=== PATIENT | male | born 1965 | race Hispanic/Latino ===

== ENCOUNTER 2017-12-18 20:49 | Inpatient (IN) | payer BC ==
[~2017-12-18 20:49] MED LIST: ISOVUE-370 76%-LOCM 1 ML ONE
[2017-12-18 22:05] LABS: #Basophils 0.1 thou/uL (0.0-0.2); #Eosinphils 0.2 thou/uL (0.0-0.7); #Lymphocytes 3.1 thou/uL (1.20-3.40); #Monocytes 1.1 thou/uL (0.11-0.59); %Lymphocytes 32.5 % (21.0-51.0); %Monocytes 11.7 % (0.0-10.0); %Neutrophils 52.9 % (42.0-75.0); Mean Corpuscular HGB CONC 32.6 g/dL (32.0-36.0); Mean Corpuscular Hemoglobin 29.3 pg (27.0-31.0); Mean Corpuscular Volume 89.9 fL (78.0-98.0); Platelet Count 249 thou/uL (130-400); RBC Distribution Width 12.1 % (11.5-14.5); Red Blood Cell (RBC) Count 5.46 mill/uL (4.70-6.10); White Blood Cell (WBC) Count 9.5 thou/uL (4.8-10.8)
[2017-12-18 22:26] LABS: CKMB 2.2 ng/mL (0-6.6); Troponin I Less than 0.010 ng/mL (< 0.028)
[2017-12-18 22:30] LABS: ALT (SGPT) 21 U/L (8-55); AST (SGOT) 15 U/L (5-34); Albumin 4.4 g/dL (3.5-5.0); Alkaline Phosphatase 80 U/L (40-150); Anion Gap 10 mmol/L (10-20); BUN (Urea Nitrogen) 17 mg/dL (8.9-20.6); Bilirubin, Total 0.4 mg/dL (0.2-1.2); Calc. Creatinine Clearance 0 mL/min (70-130); Calcium 9.5 mg/dL (7.8-10.44); Carbon Dioxide 26 mmol/L (22-29); Chloride 109 mmol/L (98-107); Estimated GFR-MDRD Greater than 90; Globulin 3.3 g/dL (2.4-3.5); Glucose 98 mg/dL (70-105); Potassium 3.8 mmol/L (3.5-5.1); Protein, Total 7.7 g/dL (6.0-8.3); Sodium 141 mmol/L (136-145)
--- NOTE | 2017-12-18 22:35 | RAD ---
CHEST ONE VIEW: INDICATIONS: History of bronchitis with dyspnea. COMPARISON: None. FINDINGS: There is a moderate left-sided pneumothorax. There are prominent bullous changes involving the left upper lobe and the medial right upper lobe. There is slight hyperexpansion of the lungs, indicative of underlying emphysema. There is mild cardiomegaly. No acute osseous abnormality is evident. IMPRESSION: 1. Moderate left-sided pneumothorax. 2. Severe emphysematous change. 3. Findings were called to Dr. Blake at 10:05 p.m. on 12/18/2017. CODE CR POS:
--- NOTE | 2017-12-18 23:11 | CT ---
CTA CHEST: HISTORY: Asthma and pneumothorax. TECHNIQUE: Contrast enhanced CTA chest is performed, 2D and 3D reconstructed images are performed on an [facility] 3D work station. FINDINGS: As mentioned on the chest radiograph, there is a moderate to large left-sided pneumothorax. Extensiv e bilateral emphysematous change is seen. Left lower lobe consolidation is seen. No evidence of ronnell ling defects seen in the pulmonary arteries to suggest pulmonary emboli. IMPRESSION: Extensive emphysematous and fibrobullous changes with a large left-sided pneumothorax seen. POS: [facility]
[2017-12-18] MEDS ORDERED: Lidocaine 1% w/Epinephrine 1:100K 20 ML VIAL ONE (23:50)
[2017-12-19] MEDS ORDERED: HYDROcodone/Acetaminophen 5/325 mg Tablet PO PRN (00:31)
[2017-12-19] MEDS ORDERED: Bisacodyl 5 MG TAB PO PRN (00:31)
[2017-12-19] MEDS ORDERED: Ondansetron PF 4 MG/2 ML Vial IVP PRN (00:31)
[2017-12-19] MEDS ORDERED: Senokot S 8.6-50 MG TAB PO PRN (00:31)
[2017-12-19] MEDS ORDERED: Fentanyl 100 MCG/2 ML VIAL SLOW IVP PRN ×2 (00:34)
[2017-12-19] MEDS: HYDROcodone/Acetaminophen 5/325 mg Tablet PO PRN ×2 (03:23→14:12)
[2017-12-19 03:53] VITALS: BMI 24.2
--- NOTE | 2017-12-19 04:32 | OP ---
PREOPERATIVE DIAGNOSIS: Spontaneous left pneumothorax. POSTOPERATIVE DIAGNOSIS: Spontaneous left pneumothorax. PROCEDURE: Left tube thoracostomy. SURGEON: Rayray Walters M.D. ANESTHESIA: 1% lidocaine with epinephrine. DESCRIPTION OF DETAIL: Left chest wall was prepped and draped in usual sterile fashion. Chest wall was then anesthetized just below the inframammary crease with 1% lidocaine with epinephrine. A total of 20 mL was used. The skin incision was made and sharp dissection used to enter the chest. There was an initial gush of air. A 28-Luxembourger chest tube was placed with good air fluctuation in and out, this caused patient to . The tube was secured with 0 silk suture and sterile dressings applied. Follow up chest x-rays shows chest tube pointing medially with good reexpansion of his lung. There was initial air leak eventually stopped.
--- NOTE | 2017-12-19 04:49 | CON ---
DATE OF CONSULTATION: 12/19/2017 EMERGENCY DEPARTMENT ENCOUNTER: 12/18/2017 HISTORY OF PRESENT ILLNESS: Mr. Stacie Rowley is a 52-year-old gentleman who presented in the early evening hours. He was short of breath. Chest x-ray showed a large left pneumothorax. He also had s evere bleb disease. He had a CT angiogram performed, which shows again severe bleb disease with a la rge left pneumothorax. I was asked to see him for further treatment strategy. Patient has no previous pneumothorax history. He really has almost asymptomatic at this time. PAST MEDICAL HISTORY: None. PAST SURGICAL HISTORY: None. CURRENT MEDICATIONS: None. ALLERGIES: None. SOCIAL HISTORY: He smokes a pack of Ghanaian cigarettes a day. 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 PHYSICAL EXAMINATION: VITAL SIGNS: Oxygen saturation is 95% on room air. Heart rate is 80 and regular, blood pressure is 118/71. HEENT: Sclerae nonicteric. Pupils equal and round bilaterally. NECK: Supple without any adenopathy or crepitance. There is no chest wall crepitance. LUNGS: Have diminished breath sounds throughout bilaterally. HEART: Rhythm is regular. ABDOMEN: Soft, nontender. EXTREMITIES: No edema. RADIOLOGY: I have reviewed his chest x-ray and chest CT. These show a large amount of bilateral ble b disease involving most of both lungs. On the left, he has a large pneumothorax which is compressed the normal lung inferiorly. This normal lung is very small in volume compared to the bleb disease. This is probably why he is so asymptomatic at this point in that he normally does not really have an y functional lung tissue to on the left. I have discussed treatment with him through a optical mechanic apprentice. He is a very reluctant and wants to go beau e and come back tomorrow. Eventually, I was able to convince him that this would add nothing other t doe risk to his current situation. He consented for chest tube placement.
[2017-12-19] MEDS: Ketorolac Tromethamine 30 MG/ML VIAL IVP SCH ×4 (05:50→23:47)
--- NOTE | 2017-12-19 09:16 | RAD ---
SINGLE VIEW OF THE CHEST: Comparison: 12-18-17 History: Chest pain, shortness of breath. FINDINGS: Single view of the chest shows normal sized cardiomediastinal silhouette. There is a left sided chest tube. The previously seen pneumothorax is not visualized on today's examination. There is air in the left chest wall. IMPRESSION: Evacuation of left pneumothorax. POS: [facility]
[2017-12-19] MEDS: Enoxaparin Sodium 30 MG/0.3 ML SYRINGE SC SCH (09:19)
--- NOTE | 2017-12-19 09:21 | RAD ---
TWO VIEWS OF THE CHEST: COMPARISON: None. HISTORY: Left chest tube placement for pneumothorax. FINDINGS: Two views of the chest show a normal-sized cardiomediastinal silhouette. There is a left-sided chest tube without evidence of pneumothorax on the current exam. A small left pleural effusion is seen. Atelectasis is seen in the left lung base. IMPRESSION: 1. Evacuation of pneumothorax. 2. Left pleural effusion with adjacent atelectasis. POS: [facility]
[2017-12-20] MEDS: Ketorolac Tromethamine 30 MG/ML VIAL IVP SCH ×2 (06:32→12:03)
--- NOTE | 2017-12-20 07:45 | RAD ---
FRONTAL RADIOGRAPH CHEST: DATE: 12/20/2017. COMPARISON: 12/19/2017. HISTORY: Left-sided chest tube. FINDINGS: There is subcutaneous emphysema seen focally within the lower aspect of the left chest wall, at the i nsertion of the patient's stable left-sided chest tube. There are severe emphysematous changes on th e left which limits detailed assessment for pneumothorax as there is an underlying marked paucity of lung markings. A component of pneumothorax is suspected in the left perihilar region medially. Ther e is no discrete pneumothorax within the left base. It is difficult to exclude apical pneumothorax o n the left, but no obvious pneumothorax is seen in this region. There are emphysematous changes asso ciated with the right lung as well. IMPRESSION: Stable left-sided chest tube. Probable small pneumothorax noted in the left perihilar region. It is difficult to apical pneumothorax on the left as detailed above. POS: [facility]
[2017-12-20] MEDS: Enoxaparin Sodium 30 MG/0.3 ML SYRINGE SC SCH (08:54)
--- NOTE | 2017-12-20 09:50 | CT ---
CT CHEST NONCONTRAST HIGH RESOLUTION: History: Dyspnea. Tobacco abuse. Recent pneumothorax. FINDINGS: Extensive disruptive emphysematous bullae involve each lung, primarily the upper lobes, left worse th an right. There is no pneumothorax evident. Left upper lobe is nearly completely inflated with some r esidual atelectasis at the dependent portion. Significant atelectasis remains at the left posterolate ral lung base with partial inflation of the left lower lobe which had been completely collapsed on th e previous exam. Airways are patent. No evidence of bronchiectasis. No significant peripheral interst itial disease. Lack of contrast limits evaluation of the mediastinum and soft tissues. No bulky adenopathy. Extensiv e gas is present throughout the left chest wall. IMPRESSION: 1. Severe emphysema. No evidence of significant interstitial lung disease. 2. Resolution of the left pneumothorax with small amount of residual atelectasis of the left lung. Ex tensive left chest wall gas remains. POS: [facility]
--- NOTE | 2017-12-20 10:53 | DIS ---
DATE OF ADMISSION: 12/19/2017 DATE OF DISCHARGE: 12/20/2017 DIAGNOSES: Emphysema with blebs and left spontaneous pneumothorax. PROCEDURE: Left chest tube placement. DESCRIPTION OF HOSPITAL STAY: Mr. Quinones presented to the Emergency Department short of breath. His chest x-ray followed by CT scan showed a large panlobular bullous disease. Alpha 1 antitrypsin was sent and Pulmonology consult has been obtained. He had a large pneumothorax on the left, which was treated with a chest tube. His lung immediately r eexpanded and there was no further air leak. His chest tube has been discontinued this morning. He is being discharged to home to follow up with me in a week in the office with a chest x-ray.
[2017-12-20 11:39] VITALS: BP 116/68; TEMP 97.8
--- NOTE | 2017-12-20 12:26 | CON ---
DATE OF CONSULTATION: 12/20/2017 HISTORY OF PRESENT ILLNESS: Mr. Stacie Rowley is a very pleasant 52-year-old male who was admitted with spontaneous pneumothorax. He has never been admitted here before. He is a heavy smoker leading up to this admission. His chest tube was removed this morning. He has significant bilateral upper lobe predominance of the cystic airspaces/bullous disease. I was consulted for assistance with his management. He recently was diagnosed with bronchitis and treated with a Z-Zaid. PAST MEDICAL HISTORY: Unremarkable. SOCIAL HISTORY: He is a smoker, smokes little Djiboutian cigars everyday. He is not a daily drinker. ALLERGIES: He reports an allergy to PENICILLIN. FAMILY HISTORY: Negative for lung disease at an early age. REVIEW OF SYSTEMS: 10 point review of systems completed; otherwise unremarkable. He denies shortness of breath, hemoptysis, purulent sputum. PHYSICAL EXAMINATION: GENERAL: He is in no distress. Chest tubes out. VITAL SIGNS: He is afebrile, heart rate 64, respiratory rate 18, oximetry is 94 % on room air, blood pressure 114/70. HEAD: Unremarkable. NECK: Unremarkable. He has no lymphadenopathy. LUNGS: Distant and clear. HEART: Regular rhythm. S1 and S2 are normal. ABDOMEN: Soft and nontender. EXTREMITIES: Without clubbing, cyanosis, or edema. CT was ordered by me this morning. His thin walled cystic airspaces most suggestive of emphysema. I doubt he has eosinophilic granuloma. He has been instructed not to smoke. I will see him back in follow up in 3 weeks to go over results of his alpha 1 antitrypsin level. This is a 70 minute consult, with greater than 50% of time spent on unit with coordination of care. BERNICE
--- NOTE | 2017-12-22 17:50 | EKG ---
Test Reason : SOB Blood Pressure : / mmHG Vent. Rate : 068 BPM Atrial Rate : 068 BPM P-R Int : 158 ms QRS Dur : 090 ms QT Int : 400 ms P-R-T Axes : -10 -34 000 degrees QTc Int : 425 ms Normal sinus rhythm Left axis deviation Abnormal ECG Confirmed by GISSELLE GILMAN ([id number]), writer editor HUGH GUZMAN ([id number]) on 12/22/2017 5:49:07 PM Referred By: Confirmed By:GISSELLE GILMAN
== END 2017-12-20 15:49 | disposition home or self-care (01) | DRG 201 ==
LOC: ERS 20:49 → SJJU 12-19 00:44
PROVIDERS: ADMIT Thoracic Surgery (Cardiothoracic Vascular Surgery); ATTEND Thoracic Surgery (Cardiothoracic Vascular Surgery)
PROC: 0W9B30Z Drainage of Left Pleural Cavity with Drainage Device, Percutaneous Approach (ICD-10-PCS; principal; 2017-12-19)
DX: J93.11 Primary spontaneous pneumothorax (principal); F17.210 Nicotine dependence, cigarettes, uncomplicated; J43.9 Emphysema, unspecified; Z88.0 Allergy status to penicillin
CPT/HCPCS: 32551; 36415; 71045; 71046; 71250; 71275; 80053; 82103; 82553; 83880; 84484; 85025; 85379; 93005; J1650; J1885; J2001

== ENCOUNTER 2017-12-25 13:48 | Outpatient (CLI) | payer BC ==
--- NOTE | 2017-12-25 15:49 | RAD ---
TWO VIEWS CHEST: COMPARISON: 12/19/2017, 12/20/2017. HISTORY: Pneumothorax. FINDINGS: There is a subcutaneous emphysema in the left lateral chest wall. Removal of left-sided chest tube. Small left apical pneumothorax is noted. Chronic changes of the lung parenchyma and hyperinflation are identified. Improving aeration in the left lung base. Residual opacities do remain. No osseous abnormalities. IMPRESSION: Small left-sided pneumothorax. POS: [facility]
== END 2017-12-25 13:49 | disposition home or self-care (01) ==
LOC: RAD 13:48
PROVIDERS: ATTEND Thoracic Surgery (Cardiothoracic Vascular Surgery)
DX: J93.11 Primary spontaneous pneumothorax (principal)
CPT/HCPCS: 71046

== ENCOUNTER 2018-01-11 13:43 | Outpatient (CLI) | payer BC ==
--- NOTE | 2018-01-11 16:04 | RAD ---
TWO VIEWS CHEST: HISTORY: Dyspnea. FINDINGS: PA and lateral views of the chest are obtained on 01/11/2018. Comparison is made to previous exam fro m 12/25/2017. Two views chest demonstrate some minimal area of scarring seen in the right upper lobe. There is melva e blunting of the left costophrenic angle compatible with a left-sided pleural effusion. There appea rs to be some retraction of the left lung base compatible with possible hydropneumothorax in the left lung base. Some areas of linear density are also seen in the left lung base medially, compatible with areas of l bret parenchymal scar. IMPRESSION: Bilateral lung parenchymal scarring with air fluid level in the left lung base concerning for a hydro pneumothorax. POS: [facility]
== END 2018-01-11 13:44 | disposition home or self-care (01) ==
LOC: RAD 13:43
PROVIDERS: ATTEND Internal Medicine Critical Care Medicine
DX: R06.00 Dyspnea, unspecified (principal); J98.4 Other disorders of lung
CPT/HCPCS: 71046

== ENCOUNTER 2018-06-15 09:09 | Outpatient (CLI) | payer BC ==
--- NOTE | 2018-06-15 09:35 | RAD ---
XR Chest Pa Lat @ [facility] History: [Cholangiogram] Comparison: Chest radiograph 2018 Findings: Large left lateral pneumothorax probably involving the lateral margin of the hemithorax. Th ere is equal involvement of the apex and base. Abnormal nodular thickening along the left peripheral lower pleura. Scarring and bullous formation right upper lobe. Impression: 1. Size increase of left lateral pneumothorax involving approximate 60% of the hemithorax volume. 2. Abnormal nodular thickening of the peripheral left pleura. Nonemergent CT of the chest is recommen ded.
== END 2018-06-15 09:10 | disposition home or self-care (01) ==
LOC: RAD 09:09
PROVIDERS: ATTEND Internal Medicine Critical Care Medicine
DX: R06.00 Dyspnea, unspecified (principal); J93.9 Pneumothorax, unspecified
CPT/HCPCS: 71046

== ENCOUNTER 2018-06-15 10:38 | Inpatient (IN) | payer BC ==
[2018-06-15] MEDS ORDERED: Clindamycin/D5W 900 MG in Premix Bag 1 BAG IVPB SCH (12:30)
[2018-06-15] MEDS ORDERED: Laxative Of Choice PO PRN (14:01)
[2018-06-15] MEDS ORDERED: Sodium Chloride 0.45% 1,000 ML IV SCH (14:15)
[2018-06-15 15:01] LABS: #Eosinphils 0.1 thou/uL (0.0-0.7); #Lymphocytes 1.6 thou/uL (1.20-3.40); #Monocytes 0.5 thou/uL (0.11-0.59); #Neutrophils 10.6 thou/uL (1.40-6.50); %Basophils 0.2 % (0.0-1.0); %Eosinophils 0.4 % (0.0-10.0); %Lymphocytes 12.6 % (21.0-51.0); %Neutrophils 82.8 % (42.0-75.0); Hemoglobin 16.5 g/dL (14.0-18.0); Mean Corpuscular HGB CONC 33.2 g/dL (32.0-36.0); Mean Corpuscular Hemoglobin 29.3 pg (27.0-31.0); Mean Corpuscular Volume 88.1 fL (78.0-98.0); Mean Platelet Volume 7.3 fL (7.4-10.4); Platelet Count 251 thou/uL (130-400); RBC Distribution Width 12.1 % (11.5-14.5); Red Blood Cell (RBC) Count 5.62 mill/uL (4.70-6.10); White Blood Cell (WBC) Count 12.9 thou/uL (4.8-10.8)
[2018-06-15 15:18] LABS: Anion Gap 14 mmol/L (10-20); BUN (Urea Nitrogen) 20 mg/dL (8.4-25.7); Calc. Creatinine Clearance 0 mL/min (70-130); Calcium 9.9 mg/dL (7.8-10.44); Carbon Dioxide 23 mmol/L (22-29); Chloride 105 mmol/L (98-107); Estimated GFR-MDRD Greater than 90; Glucose 111 mg/dL (70-105); Sodium 138 mmol/L (136-145)
[2018-06-15] MEDS ORDERED: Fentanyl 100 MCG/2 ML VIAL ONE ×2 (16:02→17:54)
[2018-06-15] MEDS ORDERED: Midazolam HCl 2 mg/2 ml Vial ONE (16:03)
[2018-06-15] MEDS ORDERED: Bupivacaine HCl 0.5%/Epinephrine 1:200,000/PF 30 ml Vial ONE (16:54)
[2018-06-15] MEDS ORDERED: Clindamycin/D5W 900 mg/50 ml Premix Bag ONE (16:54)
[2018-06-15] MEDS ORDERED: PHENYLEPHRINE-NS 100 MCG/ML 10 ML SYRINGE ONE (17:30)
[2018-06-15] MEDS ORDERED: Dexamethasone 20 MG/5 ML VIAL ONE (17:30)
[2018-06-15] MEDS ORDERED: Lidocaine 1% PF 5 ML VIAL ONE (17:30)
[2018-06-15] MEDS ORDERED: Glycopyrrolate 0.2 MG/ML 5 ML SYRINGE ONE (17:30)
[2018-06-15] MEDS ORDERED: Ketorolac Tromethamine 30 MG/ML VIAL ONE (17:30)
[2018-06-15] MEDS ORDERED: Rocuronium Bromide 10 MG/ML (10ML VIAL) ONE (17:30)
[2018-06-15] MEDS ORDERED: PROPOFOL 200 MG/20 ML VIAL ONE (17:30)
[2018-06-15] MEDS ORDERED: Ondansetron PF 4 MG/2 ML Vial ONE (17:30)
--- NOTE | 2018-06-15 18:16 | RAD ---
CHEST ONE VIEW: 06/15/18 INDICATION: Status post left thoracoscopy. COMPARISON: Prior chest radiograph dated 06/15/18. FINDINGS: There has been interval placement of a left sided chest tube. The large left sided pneumothorax is re duced in size. A small anterior and apical pneumothorax remains. Chronic lung changes are similar jerrell earing. Osseous structures are unchanged. IMPRESSION: Reduction in the large left sided pneumothorax. Small to moderate left sided pneumothorax remains. Co ntinued follow-up is recommended. POS: [facility]
--- NOTE | 2018-06-15 18:37 | CON ---
DATE OF CONSULTATION: 06/15/2018 HISTORY OF PRESENT ILLNESS: Mr. Rowley is a 53-year-old gentleman, who was in the hospital in December 2017 with left pneumothorax secondary to bullous disease. He quit smoking at that time. He had a chest tube placed with re-expansion of his lung. His air leak eventually stopped and tube was removed. He was following up with Dr. Rahman today and on his followup chest x-ray, he has complete collapse of the left lung. He is currently asymptomatic. PAST MEDICAL HISTORY: None. PAST SURGICAL HISTORY: None. CURRENT MEDICATIONS: 1. DuoNeb q.6 hours p.r.n. 2. Pepcid 20 mg b.i.d. ALLERGIES: PENICILLIN. SOCIAL HISTORY: He quit smoking in December. Up to that point, he had been a heavy smoker. He is and accompanied by his . PHYSICAL EXAMINATION: GENERAL: This is a well-developed, well-nourished man, resting comfortably in his bed. VITAL SIGNS: Temperature is 98.8, pulse is 78 and regular, and blood pressure 120/72. HEENT: Sclerae nonicteric. Pupils are equal and round bilaterally. NECK: Supple. CHEST: Has diminished breath sounds with tympanitic left chest. Right chest has normal breath sounds. HEART: Rhythm is regular. ABDOMEN: Soft and nontender. EXTREMITIES: No edema. LABORATORY DATA: I have reviewed his chest x-ray and previous CT scans. ASSESSMENT AND PLAN: This is a 53-year-old gentleman with a long tobacco use history and chronic obstructive pulmonary disease. He has bullous disease bilaterally. I have discussed left thoracoscopy, possible bleb resection, and pleurodesis. He is agreeable to proceed. Job ID: [id number]
[2018-06-15] MEDS ORDERED: traMADol HCl 50 MG TAB PO PRN ×2 (18:52)
[2018-06-15] MEDS ORDERED: Mineral Oil ENEMA PR PRN (18:52)
[2018-06-15] MEDS ORDERED: HYDROcodone/Acetaminophen 5/325 mg Tablet PO PRN ×2 (18:52)
[2018-06-15] MEDS ORDERED: Acetaminophen 650 MG Suppository PR PRN (18:52)
[2018-06-15] MEDS ORDERED: Ondansetron PF 4 MG/2 ML Vial IVP PRN (18:52)
[2018-06-15] MEDS ORDERED: Milk Of Magnesia 30 ML UDCUP PO PRN (18:52)
[2018-06-15] MEDS ORDERED: Bisacodyl 10 MG SUPP PR PRN (18:52)
--- NOTE | 2018-06-15 19:14 | HP ---
DATE: 06/15/2018 HISTORY OF PRESENT ILLNESS: Benjamin Rowley is a very pleasant gentleman, who was seen today in my office for his mild shortness of breath. To refresh, he had a spontaneous pneumothorax last year and was found to have a significant bullous lung disease. We checked an alpha-1 antitrypsin level, which was normal. He has not smoked since that event. He says three days prior to admission, he noticed that he was little more short of breath, but today says he feels fine. He had an appointment to see me. PAST MEDICAL HISTORY: Remarkable for spontaneous pneumothorax last year. SOCIAL HISTORY: He is no longer smoking, but was a pack-a-day smoker. He is . Works at [employer]. FAMILY HISTORY: Not obtained. REVIEW OF SYSTEMS: 10 point review of systems completed, otherwise negative. ALLERGIES: HE HAS NO DRUG ALLERGIES THAT HE IS AWARE OF, ALTHOUGH HE THINKS THAT HIS MOM TOLD HIM HE HAD A PENICILLIN ALLERGY WHEN HE WAS A KID. MEDICATIONS: He is on no medications prior to admission. PHYSICAL EXAMINATION: GENERAL: Seen in office for his mild shortness of breath. VITAL SIGNS: Oximetry is 94%, pulse is 80, respiratory rate 18, and blood pressure 120/70. HEENT: Pupils are equal. Sclerae are anicteric. NECK: Supple. No lymphadenopathy. LUNGS: Clear on the right. Decreased breath sounds on the left. HEART: Regular rhythm. S1 and S2 are normal. ABDOMEN: Soft and nontender. EXTREMITIES: Without clubbing, cyanosis, or edema. IMAGING: Chest radiograph shows near-complete collapse of the left lung. PLAN: He will be admitted to the hospital. I have consulted Cardiothoracic Surgery for placement of a chest tube and possible pleurodesis at the same time. Dr. Walters has been gracious enough to see him and he is on the schedule for later today. This is a 70 minute History and Physical, with greater than 50% of time spent on unit coordinating care. Job ID: [id number] MTDD
[2018-06-15 19:36] VITALS: BMI 25.0
[2018-06-15] MEDS: Famotidine 20 MG TAB PO SCH (20:34)
[2018-06-15] MEDS: Acetaminophen 325 MG TAB PO PRN (20:34)
--- NOTE | 2018-06-15 23:33 | OP ---
DATE OF PROCEDURE: 06/15/2018 PREOPERATIVE DIAGNOSIS: Second spontaneous pneumothorax in last 6 months on the left with known chronic obstructive pulmonary disease and extensive bullous disease. POSTOPERATIVE DIAGNOSIS: Second spontaneous pneumothorax in last 6 months on the left with known chronic obstructive pulmonary disease and extensive bullous disease. PROCEDURE PERFORMED: Left thoracoscopy with resection of bleb. ANESTHESIA: General endotracheal - Dr. Zeeshan Smith ESTIMATED BLOOD LOSS: Minimal. SPECIMEN: Left upper lobe bleb. DRAINS: A 20-Slovenian left chest tube. DESCRIPTION OF PROCEDURE: After consent was obtained, the patient was to the operating brought room and placed in supine position on the operating table. Appropriate central line was placed, and general endotracheal anesthesia was induced. Flexible fiberoptic bronchoscopy was performed to confirm tube positioning. The left chest was prepped and draped in usual sterile fashion with the patient in right lateral decubitus position. Three separate port incisions were made. Thoracoscope was inserted through the midaxillary port. The chest was inspected. There was extensive bullous disease throughout the left lung. There was one bleb, which was deflated while the others remained inflated. This bleb was grasped and the base was stapled with a CESAR stapler, a 45-mm 4.8 length CESAR green load powered stapler. The lung was then inflated and inspected. There were no other areas of air leak. The chest wall was abraded throughout. A 20-Slovenian chest tube was placed through the anterior axillary line incision to the apex and secured with silk suture. The port incisions were infiltrated with 0.5% Marcaine with epinephrine for a total of 30 mL. The 2 other ports were then closed after reexpanding the lung in layers. Dermabond was applied to skin. The patient was awakened, extubated, and transferred to the recovery room in stable condition. Needle, sponge, and instrument counts were all reported as correct at the end of the procedure. Job ID: [id number]
[2018-06-16] MEDS: Acetaminophen 325 MG TAB PO PRN ×4 (00:32→22:46)
[2018-06-16] MEDS: D5 0.9% NS w/ 20 mEq KCl 1,000 ML IV SCH ×3 (00:32→22:47)
[2018-06-16] MEDS: Clindamycin/D5W 900 MG in Premix Bag 1 BAG IVPB SCH ×3 (00:33→16:52)
[2018-06-16] MEDS: Famotidine 20 MG TAB PO SCH ×2 (08:40→20:27)
[2018-06-16] MEDS: Enoxaparin Sodium 40 MG/0.4 ML SYRINGE SC SCH (08:42)
--- NOTE | 2018-06-16 10:53 | RAD ---
XR Chest 1 View History: [Thoracotomy] Comparison: Chest radiograph prior day Findings: Thoracostomy tubes placed, similar. Mild left lateral hemithorax subcutaneous emphysema. Mild atelectatic changes both lung bases. No acute osseous abnormality. Impression: Continued interval size reduction of the left pneumothorax.
--- NOTE | 2018-06-16 19:46 | PRG ---
DATE OF SERVICE: 06/16/2018 SUBJECTIVE: Mr. Stacie Rowley is a very pleasant gentleman. He has chest tube in. His operative report has been reviewed. He is in no distress. He has minimal chest discomfort he says. His sitting at the bedside. I have asked them to trade places or get him sit up in the chair in little while. OBJECTIVE: VITAL SIGNS: He is afebrile, heart rate 67, respiratory rate 16, oximetry 96% on 2 L, and blood pressure 123/74. LUNGS: Clear. HEART: Regular rhythm. ABDOMEN: Soft. He has small air leak look in his Pleur-evac. Chest radiographs obviously improved . He still does not have complete re-expansion of the lung. It is really unclear how long that lung is bend down. We will continue to follow. I appreciate Dr. Walters to help with this. Job ID: [id number]
[2018-06-17] MEDS: Clindamycin/D5W 900 MG in Premix Bag 1 BAG IVPB SCH (01:54)
[2018-06-17] MEDS: Acetaminophen 325 MG TAB PO PRN ×4 (05:40→20:13)
--- NOTE | 2018-06-17 07:39 | RAD ---
XR Chest 1 View Portable History: [Thoracotomy changes] Comparison: Radiograph prior day Findings: There is bullous formation left lung apex. Lungs are hypoinflated on today's examination bi basilar atelectatic. Thoracostomy tube is similar. No acute osseous abnormality. Impression: Bullous formation left lung apex.
[2018-06-17] MEDS: D5 0.9% NS w/ 20 mEq KCl 1,000 ML IV SCH (09:21)
[2018-06-17] MEDS: Enoxaparin Sodium 40 MG/0.4 ML SYRINGE SC SCH (09:22)
[2018-06-17] MEDS: Famotidine 20 MG TAB PO SCH ×2 (09:22→20:14)
--- NOTE | 2018-06-17 16:10 | PRG ---
DATE OF SERVICE: 06/17/2018 SUBJECTIVE: Benjamin Rowley is in good spirits. He had significant chest discomfort yesterday, but says two Tylenol every 6 hours, where he is actually controlling his pain today. OBJECTIVE: VITAL SIGNS: Surprisingly, his temperature is 99, heart rate 75, oximetry is 91% on room air, and blood pressure 120/77. LUNGS: Clear. HEART: Regular rhythm. ABDOMEN: Soft. EXTREMITIES: Without edema. LABORATORY DATA: Chest radiograph still shows an air leak that is small. His chest radiograph is improved. IMPRESSION AND PLAN: Status post resection of bullous with spontaneous pneumothorax, clinically slowly improving. Continue his chest tube suction per CT Surgery. Job ID: [id number]
[2018-06-18] MEDS: D5 0.9% NS w/ 20 mEq KCl 1,000 ML IV SCH ×2 (01:25→14:46)
[2018-06-18] MEDS: Acetaminophen 325 MG TAB PO PRN ×4 (02:43→21:21)
--- NOTE | 2018-06-18 08:40 | RAD ---
PORTABLE CHEST ONE VIEW: 06/18/2018 6:55 a.m. HISTORY: Pleurodesis. COMPARISON: Exam from the previous day. FINDINGS: Left-sided chest tube remains in place. Bibasilar atelectatic changes are again seen, right greater than left. Bullous changes in the left lung are redemonstrated. No pneumothoraces are identified. IMPRESSION: Stable examination. POS: [facility]
[2018-06-18] MEDS: Enoxaparin Sodium 40 MG/0.4 ML SYRINGE SC SCH (09:31)
[2018-06-18] MEDS: Famotidine 20 MG TAB PO SCH ×2 (09:31→21:18)
--- NOTE | 2018-06-18 10:12 | PRG ---
DATE OF SERVICE: 06/18/2018 SUBJECTIVE: Mr. Stacie Rowley is doing well. His chest tubes now to water-seal. He has visualized air leak. OBJECTIVE: VITAL SIGNS: He is afebrile, heart rate 82, oximetry is 94 room air, blood pressure 113/79. IMAGING: Chest x-ray shows no pneumothorax today. IMPRESSION: Spontaneous pneumothorax, status post resection of a bleb. Needs supportive care. Discharge decision will be made by Dr. Walters. I will be happy to see him in followup for a chest x-ray 2 to 3 weeks after discharge. Job ID: [id number]
[2018-06-19] MEDS: D5 0.9% NS w/ 20 mEq KCl 1,000 ML IV SCH (04:01)
[2018-06-19] MEDS: Acetaminophen 325 MG TAB PO PRN (06:20)
--- NOTE | 2018-06-19 07:21 | DIS ---
DATE OF ADMISSION: 06/15/2018 DATE OF DISCHARGE: 06/19/2018 DIAGNOSIS: Recurrent left pneumothorax with history of chronic obstructive pulmonary disease and extensive bleb disease. PROCEDURE PERFORMED: Left thoracoscopy with resection of ruptured bleb. DESCRIPTION OF HOSPITAL STAY: Mr. Quinones was seen in Dr. Rahman's office with a complete left pneumothorax. At that time, he was essentially asymptomatic. He was admitted and underwent left thoracoscopy with resection of a ruptured bleb that evening. He has done well postoperatively. He had no air leak in his chest tube yesterday and it was removed. He is being discharged to home today in guarded condition to follow up with me and Dr. Rahman in 2 weeks. Job ID: [id number]
[2018-06-19] MEDS: Enoxaparin Sodium 40 MG/0.4 ML SYRINGE SC SCH (07:57)
[2018-06-19] MEDS: Famotidine 20 MG TAB PO SCH (07:58)
--- NOTE | 2018-06-19 08:10 | RAD ---
SINGLE VIEW OF THE CHEST: Comparison: 06-18-18 History: Status post chest tube removal for pleurodesis. Left pneumothorax. FINDINGS: Single view of the chest shows normal sized cardiomediastinal silhouette. The left sided chest tube h as been removed. There is a small left pleural effusion. No pneumothorax is appreciated. Bullous pappas ges are seen in the lung apices. IMPRESSION: Status post chest tube removal without evidence of pneumothorax. POS: [facility]
[2018-06-19 11:57] VITALS: BP 137/93; TEMP 97.9
--- NOTE | 2018-06-19 18:10 | DIS ---
DATE OF ADMISSION: 06/15/2018 DATE OF DISCHARGE: 06/19/2018 Benjamin Rowley was evaluated this morning after Dr. Walters removed his chest tube last night. He had no pneumothorax on chest radiograph. He has subsequently been discharged home. DISCHARGE DIAGNOSES: 1. Spontaneous pneumothorax. 2. Bullous emphysema from tobacco use with a negative alpha-1 antitrypsin workup. He is abstinent from tobacco. HOSPITAL COURSE: See history and physical for details. Briefly, Mr. Stacie Rowley presented to the office with an almost complete collapse of his left lung. He is minimally symptomatic, but says he had been more short of breath for 3 days prior to admission. He went to the OR and had a bleb resected and then had chest tube to suction on the floor for several days postoperatively. Yesterday, he had no air leak, so he was placed to water seal. Yesterday evening, his chest tube was removed. This morning, he did not have recurrence of his pneumothorax, so he was discharged home. He will follow up with me in 2 to 3 weeks with a chest x-ray. Job ID: [id number]
== END 2018-06-19 12:10 | disposition home or self-care (01) | DRG 164 ==
LOC: SURG A 11:11
PROVIDERS: ADMIT Internal Medicine Critical Care Medicine; ATTEND Internal Medicine Critical Care Medicine
PROC: 0BBG4ZZ Excision of Left Upper Lung Lobe, Percutaneous Endoscopic Approach (ICD-10-PCS; principal; 2018-06-15)
DX: J43.9 Emphysema, unspecified (principal); J93.12 Secondary spontaneous pneumothorax; Z88.0 Allergy status to penicillin; Z79.899 Other long term (current) drug therapy; Z87.891 Personal history of nicotine dependence
CPT/HCPCS: 36415; 71045; 71046; 80048; 85025; 88305; J0670; J1100; J1650; J1885; J2001; J2250; J2405; J2704; J3010; J3490

== ENCOUNTER 2018-07-09 15:05 | Outpatient (CLI) | payer BC ==
--- NOTE | 2018-07-09 15:44 | RAD ---
CHEST 2 VIEWS: COMPARISON: 06/15/2018. HISTORY: Past medical history of spontaneous pneumothorax. FINDINGS: Normal cardiac silhouette. The pulmonary vessels and hilum are normal. Costophrenic angles re clear . Chronic changes, without consolidation or mass. Previously noted pneumothorax has essentially res olved. Pneumothorax is not appreciated on the current exam. IMPRESSION: No pneumothorax on the current exam. POS: [facility]
== END 2018-07-09 15:06 | disposition home or self-care (01) ==
LOC: RAD 15:05
PROVIDERS: ATTEND Thoracic Surgery (Cardiothoracic Vascular Surgery)
DX: J93.11 Primary spontaneous pneumothorax (principal)
CPT/HCPCS: 71046

== ENCOUNTER 2018-08-07 14:04 | Outpatient (CLI) | payer BC ==
--- NOTE | 2018-08-07 14:29 | RAD ---
XR Chest Pa Lat @ [facility] History: Dyspnea Comparison: Radiograph July 09, 2018 Findings: Scarring lung bases. There is scarring right lung apex left lung apex along with a left api tyshawn bulla. Heart size is similar. No pneumothorax. No significant effusion. No acute osseous abnormality. Impression: Chronic findings. No acute intrathoracic abnormality.
== END 2018-08-07 14:05 | disposition home or self-care (01) ==
LOC: RAD 14:04
PROVIDERS: ATTEND Internal Medicine Critical Care Medicine
DX: R06.00 Dyspnea, unspecified (principal)
CPT/HCPCS: 71046

== ENCOUNTER 2020-04-14 08:55 | Outpatient (CLI) | payer BC | END 2020-04-14 08:56 | disposition home or self-care (01) | LOC: BICRAD 08:55 | PROVIDERS: ATTEND Internal Medicine Critical Care Medicine | DX: R06.00 Dyspnea, unspecified (principal) | CPT/HCPCS: 71046 ==